=== PATIENT | male | born 1940 | race Caucasian/White ===

== ENCOUNTER 2017-09-06 15:15 | Inpatient (IN) ==
[2017-09-07] MEDS: Aspirin Enteric Coated 81 MG Tablet PO SCH (09:05)
[2017-09-07] MEDS: amLODIPine 5 MG TABLET PO SCH (09:06)
--- NOTE | 2017-09-07 16:39 | Internal Med History&Physical ---
Date of Encounter: 09/07/17 Time of Encounter: 16:00 Assessment and Plan (1) CVA (cerebral vascular accident) Current visit: No Status: Suspected Suspect left MCA distribution with right hemipareis. Continue aspirin and Plavix. Qualifiers: CVA mechanism: unspecified Qualified Code(s): I63.9 - Cerebral infarction, unspecified (2) BPH (benign prostatic hyperplasia) Current visit: Yes Status: Chronic Continue Cardura Qualifiers: Lower urinary tract symptom presence: unspecified whether lower urinary tract symptoms present Qualified Code(s): N40.0 - Benign prostatic hyperplasia without lower urinary tract symptoms (3) Loose stools Current visit: Yes Status: Acute Will discontinue Aricept and Singulair and monitor stools. (4) Hyperlipidemia Current visit: Yes Status: Acute Continue atorvastatin Qualifiers: Hyperlipidemia type: unspecified Qualified Code(s): E78.5 - Hyperlipidemia , unspecified (5) Hypertension Current visit: No Status: Chronic Continue Norvasc and Lopressor Qualifiers: Hypertension type: essential hypertension Qualified Code(s): I10 - Essential (primary) hypertension Internal Medicine - H&P: HPI Chief complaint: Stroke Admitted From: Hospital to Hospital Transfer Plans for Post Hospital Care: Home History of present illness: Mr. Lewis is a 76 year old male who was transferred to [facility] swing bed 09/06/2017 after a September 02 [facility] stay for CVA. He had originally presented at [facility] but was transferred to [facility] since no neurologist was on staff at [facility]. 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 The right carotid bifurcation showed stenosis less than 25%. There was no high-grade stenosis or focal occlusion of the vertebral arteries. He was treated medically and discharged to [facility] for ongoing rehabilitation therapy in swing bed. 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 He had essentially complete recovery from that event. He was maintained on aspirin and Plavix. He has diagnoses of dementia since 2012 and is on Aricept and Namenda. He denies seizures or other neurologic disorders. Past Med Surg Social Fam HX - Past Medical History Medical history: hyperlipidemia, hypertension, peripheral artery disease, syncope, TIA Additional medical history: Sick Sinus Syndrome Psychiatric history: anxiety, depression - Past Surgical History Surgical History: pacemaker/AICD Additional surgical history: carotid stenosis - Social History Smoking Status: Never smoker Smokeless Tobacco Status: No Alcohol use: rarely Drug use: none Internal Medicine - H&P: Meds Clopidogrel [Plavix] 75 mg PO DAILY 12/26/15 [History] Doxazosin Mesylate [Cardura] 2 mg PO DAILY 12/26/15 [History] Metoprolol [Lopressor] 25 mg PO DAILY 12/26/15 [History] Aspirin [Lo-Dose Aspirin EC] 81 mg PO DAILY 09/02/17 [History] Atorvastatin [Lipitor] 40 mg PO HS 09/02/17 [History] Citalopram Hydrobromide [Citalopram HBr] 40 mg PO DAILY 09/02/17 [History] Donepezil [Aricept] 10 mg PO HS 09/02/17 [History] Memantine [Namenda] 5 mg PO DAILY 09/02/17 [History] Montelukast [Singulair] 10 mg PO DAILY 09/02/17 [History] amLODIPine [Norvasc] 5 mg PO DAILY tablet 09/06/17 [Rx] 3 Allergy/AdvReac Type Severity Reaction Status Date / Time No Known Allergies Allergy Verified 09/02/17 20:34 All Systems PM: A 10-system review of systems was performed and is negative for pertinent findings except as documented above in the HPI. Review of systems: Gen.: His weight has been stable the past few months Cardiovascular: He has history of hypertension. 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 He denies heart failure DVT or pulmonary embolus. He had superficial phlebitis in the right leg remotely. Respiratory: He smoked from age [age]. He denies chronic lung disease GI: He has occasional diarrhea. He denies disorders of his liver gallbladder or exocrine pancreas : He has BPH denies other kidney or bladder disorders Neurologic: As per history of present illness Endocrine: He has hyperlipidemia but denies diabetes or thyroid disease Hematology/oncology: He has had skin cancer removal but denies internal malignancies or other blood disorders Psychiatric: He has depression and is on citalopram. He denies anxiety or other mental health issues [place] skeletal: He had left TKR in the past. He has DJD but denies gout or other bone joint or muscle disorders. - Constitutional Vitals: Temp Pulse Resp BP Pulse Ox 97.5 F L 68 17 144/69 92 09/07/17 06:29 09/07/17 06:29 09/07/17 06:29 09/07/17 06:29 09/07/17 06:29 Exam: Gen.: He is a well-developed well-nourished male lying in bed who appears in no acute distress HEENT: Head is atraumatic and normocephalic. Eyes: EOMI. There is no scleral icterus. Mouth: Mucosa is moist. Neck: There is no thyromegaly or adenopathy noted. Heart: Regular with frequent ectopic beats up to occasionally bigeminy. No murmurs or gallops are heard Lungs: No wheezes or crackles are heard. Abdomen: Soft and nontender. No masses or guarding are noted. Extremities: There is no cyanosis edema or clubbing noted. Dorsalis pedis and posttibial pulses are trace palpable bilaterally. Neurologic: Mental status: He is able to answer an occasional question but is generally not conversational. Cranial nerves: Smile is symmetric. Forehead wrinkles bilaterally. Tongue protrudes midline. EOMI. Motor: His right arm is near flaccid. The left arm moves normally. Ankle flexion and extension strength against resistance is 1-2 over 2 on the right and 2 over 2 on the left. Cerebellar: Finger to nose is intact using the left hand. The right arm does not move. Skin: Warm and dry
[2017-09-08] MEDS: Aspirin Enteric Coated 81 MG Tablet PO SCH (08:00)
[2017-09-08] MEDS: amLODIPine 5 MG TABLET PO SCH (08:00)
--- NOTE | 2017-09-08 14:46 | Internal Med Progress Note ---
Date of Encounter: 09/08/17 Time of Encounter: 14:40 - Assessment and plan (1) CVA (cerebral vascular accident) Current Visit: No Status: Suspected Assessment and plan: September 08. Right arm strength improved. Continue aspirin and Plavix. Qualifiers: CVA mechanism: unspecified Qualified Code(s): I63.9 - Cerebral infarction, unspecified (2) BPH (benign prostatic hyperplasia) Current Visit: Yes Status: Chronic Assessment and plan: September 08. Continue Cardura Qualifiers: Lower urinary tract symptom presence: unspecified whether lower urinary tract symptoms present Qualified Code(s): N40.0 - Benign prostatic hyperplasia without lower urinary tract symptoms (3) Loose stools Current Visit: Yes Status: Acute Assessment and plan: September 08. Remain off Aricept and Singulair and monitor. (4) Hyperlipidemia Current Visit: Yes Status: Acute Assessment and plan: September 08. Continue atorvastatin Qualifiers: Hyperlipidemia type: unspecified Qualified Code(s): E78.5 - Hyperlipidemia , unspecified (5) Hypertension Current Visit: No Status: Chronic Assessment and plan: September 08. Continue Norvasc and Lopressor. Qualifiers: Hypertension type: essential hypertension Qualified Code(s): I10 - Essential (primary) hypertension - Subjective Interval history: September 08. He has no new complaints and feels well. - Constitutional Vitals: Temp Pulse Resp BP Pulse Ox 98.2 F 70 18 160/82 97 09/08/17 07:00 09/08/17 07:00 09/08/17 07:00 09/08/17 07:00 09/08/17 07:00 Exam: He is resting comfortably in bed. His affect is cheerful. He is able to lift his right arm off the bed. I reviewed his medications and lab results. Consult Discharge Plan - Plan Referrals: Carl Antonio DO [Primary Care Provider] - 1 week
[2017-09-09] MEDS: Aspirin Enteric Coated 81 MG Tablet PO SCH (08:23)
[2017-09-09] MEDS: amLODIPine 5 MG TABLET PO SCH (08:24)
--- NOTE | 2017-09-09 15:30 | Internal Med Progress Note ---
Date of Encounter: 09/09/17 Time of Encounter: 15:20 - Assessment and plan (1) CVA (cerebral vascular accident) Current Visit: No Status: Suspected Assessment and plan: September 08. Right arm strength improved. Continue aspirin and Plavix. September 09. Continue therapy interventions with aspirin and Plavix. Qualifiers: CVA mechanism: unspecified Qualified Code(s): I63.9 - Cerebral infarction, unspecified (2) BPH (benign prostatic hyperplasia) Current Visit: Yes Status: Chronic Assessment and plan: September 08. Continue Cardura Qualifiers: Lower urinary tract symptom presence: unspecified whether lower urinary tract symptoms present Qualified Code(s): N40.0 - Benign prostatic hyperplasia without lower urinary tract symptoms (3) Loose stools Current Visit: Yes Status: Acute Assessment and plan: September 08. Remain off Aricept and Singulair and monitor. September 09. Improved. Remain off Aricept and Singulair. (4) Hyperlipidemia Current Visit: Yes Status: Acute Assessment and plan: September 08. Continue atorvastatin Qualifiers: Hyperlipidemia type: unspecified Qualified Code(s): E78.5 - Hyperlipidemia , unspecified (5) Hypertension Current Visit: No Status: Chronic Assessment and plan: September 08. Continue Norvasc and Lopressor. September 09. Continue Norvasc, Cardura, and Lopressor. Qualifiers: Hypertension type: essential hypertension Qualified Code(s): I10 - Essential (primary) hypertension (6) Depression Current Visit: Yes Status: Acute Assessment and plan: September 09. He admits feeling depressed and states he has difficulty falling asleep at night. Trazodone will be started. Qualifiers: Depression Type: unspecified Qualified Code(s): F32.9 - Major depressive disorder, single episode, unspecified - Subjective Interval history: September 08. He has no new complaints and feels well. September 09. He has no new complaints. - Constitutional Vitals: Temp Pulse Resp BP Pulse Ox 97.6 F 68 18 160/91 98 09/09/17 07:04 09/09/17 07:04 09/09/17 07:04 09/09/17 07:04 09/09/17 07:04 Exam: He is sitting in a chair at bedside and appears in no acute distress. He is unable to lift his right arm today against gravity. His affect is overall cheerful. I reviewed his medications and lab results. Consult Discharge Plan - Plan Referrals: Carl Antonio DO [Primary Care Provider] - 1 week
[2017-09-09] MEDS: traZODone 50 MG TABLET PO SCH (20:24)
[2017-09-10] MEDS: Aspirin Enteric Coated 81 MG Tablet PO SCH (09:22)
[2017-09-10] MEDS: amLODIPine 5 MG TABLET PO SCH (09:22)
[2017-09-10] MEDS: traZODone 50 MG TABLET PO SCH (20:48)
[2017-09-11] MEDS: Aspirin Enteric Coated 81 MG Tablet PO SCH (10:06)
[2017-09-11] MEDS: amLODIPine 5 MG TABLET PO SCH (10:07)
[2017-09-11] MEDS: traZODone 50 MG TABLET PO SCH (20:44)
[2017-09-12] MEDS: amLODIPine 5 MG TABLET PO SCH (08:33)
[2017-09-12] MEDS: Aspirin Enteric Coated 81 MG Tablet PO SCH (08:33)
--- NOTE | 2017-09-12 12:34 | Internal Med Progress Note ---
Date of Encounter: 09/12/17 Time of Encounter: 12:25 - Assessment and plan (1) CVA (cerebral vascular accident) Current Visit: No Status: Suspected Assessment and plan: September 08. Right arm strength improved. Continue aspirin and Plavix. September 09. Continue therapy interventions with aspirin and Plavix. Qualifiers: CVA mechanism: unspecified Qualified Code(s): I63.9 - Cerebral infarction, unspecified (2) BPH (benign prostatic hyperplasia) Current Visit: Yes Status: Chronic Assessment and plan: September 08. Continue Cardura Qualifiers: Lower urinary tract symptom presence: unspecified whether lower urinary tract symptoms present Qualified Code(s): N40.0 - Benign prostatic hyperplasia without lower urinary tract symptoms (3) Loose stools Current Visit: Yes Status: Acute Assessment and plan: September 08. Remain off Aricept and Singulair and monitor. September 09. Improved. Remain off Aricept and Singulair. September 12. He did not mention these today. C. difficile was negative. (4) Hyperlipidemia Current Visit: Yes Status: Acute Assessment and plan: September 08. Continue atorvastatin Qualifiers: Hyperlipidemia type: unspecified Qualified Code(s): E78.5 - Hyperlipidemia , unspecified (5) Hypertension Current Visit: No Status: Chronic Assessment and plan: September 08. Continue Norvasc and Lopressor. September 09. Continue Norvasc, Cardura, and Lopressor. Qualifiers: Hypertension type: essential hypertension Qualified Code(s): I10 - Essential (primary) hypertension (6) Depression Current Visit: Yes Status: Acute Assessment and plan: September 09. He admits feeling depressed and states he has difficulty falling asleep at night. Trazodone will be started. September 12. Sleep has improved. Continue trazodone. Qualifiers: Depression Type: unspecified Qualified Code(s): F32.9 - Major depressive disorder, single episode, unspecified - Subjective Interval history: September 08. He has no new complaints and feels well. September 09. He has no new complaints. September 12. He has no new complaints. He states he is unsure that he is making satisfactory progress. - Constitutional Vitals: Temp Pulse Resp BP Pulse Ox 98.4 F 94 12 130/83 96 09/12/17 07:45 09/12/17 07:45 09/12/17 07:45 09/12/17 07:45 07/19/18 07:45 Exam: He is resting comfortably in bed and appears in no acute distress. He is able to lift his right arm minimally against gravity. His affect seems slightly flat he is not very conversational. I reviewed his medications. Consult Discharge Plan - Plan Referrals: Carl Antonio DO [Primary Care Provider] - 1 week
[2017-09-12] MEDS: traZODone 50 MG TABLET PO SCH (20:34)
[2017-09-13] MEDS: Aspirin Enteric Coated 81 MG Tablet PO SCH (10:22)
[2017-09-13] MEDS: amLODIPine 5 MG TABLET PO SCH (10:22)
[2017-09-13] MEDS: traZODone 50 MG TABLET PO SCH (21:06)
[2017-09-14] MEDS: amLODIPine 5 MG TABLET PO SCH (08:00)
[2017-09-14] MEDS: Aspirin Enteric Coated 81 MG Tablet PO SCH (08:01)
[2017-09-14] MEDS: traZODone 50 MG TABLET PO SCH (21:04)
[2017-09-14] MEDS: Mag Hydrox/Al Hydrox/Simeth 30 ML UDC PO SCH (22:31)
[2017-09-15] MEDS ORDERED: Mag Hydrox/Al Hydrox/Simeth 30 ML UDC PO SCH
[2017-09-15] MEDS: Mag Hydrox/Al Hydrox/Simeth 30 ML UDC PO SCH (01:42)
[2017-09-15] MEDS ORDERED: Mag Hydrox/Al Hydrox/Simeth 30 ML UDC PO PRN (01:45)
[2017-09-15] MEDS: Aspirin Enteric Coated 81 MG Tablet PO SCH (09:01)
[2017-09-15] MEDS: amLODIPine 5 MG TABLET PO SCH (09:01)
--- NOTE | 2017-09-15 15:11 | Internal Med Progress Note ---
Date of Encounter: 09/15/17 Time of Encounter: 15:05 - Assessment and plan (1) CVA (cerebral vascular accident) Current Visit: No Status: Suspected Assessment and plan: September 08. Right arm strength improved. Continue aspirin and Plavix. September 09. Continue therapy interventions with aspirin and Plavix. Qualifiers: CVA mechanism: unspecified Qualified Code(s): I63.9 - Cerebral infarction, unspecified (2) BPH (benign prostatic hyperplasia) Current Visit: Yes Status: Chronic Assessment and plan: September 08. Continue Cardura Qualifiers: Lower urinary tract symptom presence: unspecified whether lower urinary tract symptoms present Qualified Code(s): N40.0 - Benign prostatic hyperplasia without lower urinary tract symptoms (3) Loose stools Current Visit: Yes Status: Acute Assessment and plan: September 08. Remain off Aricept and Singulair and monitor. September 09. Improved. Remain off Aricept and Singulair. September 12. He did not mention these today. C. difficile was negative. (4) Hyperlipidemia Current Visit: Yes Status: Acute Assessment and plan: September 08. Continue atorvastatin Qualifiers: Hyperlipidemia type: unspecified Qualified Code(s): E78.5 - Hyperlipidemia , unspecified (5) Hypertension Current Visit: No Status: Chronic Assessment and plan: September 08. Continue Norvasc and Lopressor. September 09. Continue Norvasc, Cardura, and Lopressor. Qualifiers: Hypertension type: essential hypertension Qualified Code(s): I10 - Essential (primary) hypertension (6) Depression Current Visit: Yes Status: Acute Assessment and plan: September 09. He admits feeling depressed and states he has difficulty falling asleep at night. Trazodone will be started. September 12. Sleep has improved. Continue trazodone. Qualifiers: Depression Type: unspecified Qualified Code(s): F32.9 - Major depressive disorder, single episode, unspecified - Subjective Interval history: September 08. He has no new complaints and feels well. September 09. He has no new complaints. September 12. He has no new complaints. He states he is unsure that he is making satisfactory progress. September 15. He has no new complaints and feels he is making progress. - Constitutional Vitals: Temp Pulse Resp BP Pulse Ox 98.6 F 69 16 153/84 96 09/15/17 06:41 09/15/17 06:41 07/22/18 06:41 09/15/17 06:41 09/15/17 06:41 Exam: He is resting comfortably in bed and appears in no acute distress. His affect is bright and cheerful. He is able to lift his right arm off the bed against gravity. Coordination is still significantly impaired. He answers questions with short answers. I reviewed his medications and lab results. Consult Discharge Plan - Plan Referrals: Carl Antonio DO [Primary Care Provider] - 1 week
[2017-09-15] MEDS: traZODone 50 MG TABLET PO SCH (21:45)
[2017-09-16] MEDS: Aspirin Enteric Coated 81 MG Tablet PO SCH (08:49)
[2017-09-16] MEDS: amLODIPine 5 MG TABLET PO SCH (08:50)
[2017-09-16] MEDS: traZODone 50 MG TABLET PO SCH (20:28)
[2017-09-17 06:32] LABS: Basophils # 0.1 K/mcL (0.0-0.2); Basophils % 0.7 %; Eosinophils # 0.2 K/mcL (0.0-0.6); Eosinophils % 2.4 %; Hematocrit 46.6 % (37.5-50.1); Hemoglobin 15.6 g/dL (12.9-16.9); Immature Granulocytes % 0.3 % (0-4); Lymphocytes # 1.8 K/mcL (0.6-4.6); Lymphocytes % 26.5 %; Mean Corpuscular HGB Conc 33.5 g/dL (31.6-35.5); Mean Corpuscular Hemoglobin 28.9 pg (28.0-33.3); Mean Corpuscular Volume 86.5 fL (83.0-100.0); Mean Platelet Volume 10.1 fL (9.4-12.4); Monocytes # 0.8 K/mcL (0.0-1.3); Monocytes % 11.1 %; Neutrophils # 4.1 K/mcL (1.6-8.9); Platelet Count 205 K/mcL (140-400); Red Blood Count 5.39 M/mcL (4.19-5.50); Red Cell Distribution Width 13.3 % (11.5-14.5)
[2017-09-17 06:51] LABS: BUN/Creatinine Ratio 14 (6-26); Blood Urea Nitrogen 14 mg/dL (8-23); Calcium 8.8 mg/dL (8.6-10.3); Carbon Dioxide 26 mEq/L (23-29); Chloride 105 mEq/L (98-107); Glucose 115 mg/dL (70-105); Osmolality,Calculated 285 (280-300); Potassium 4.2 mEq/L (3.5-5.1); Sodium 137 mEq/L (136-145); eGFR For African Americans > 60 (> 60); eGFR For Non-African Americans > 60 (> 60)
[2017-09-17] MEDS: amLODIPine 5 MG TABLET PO SCH (09:38)
[2017-09-17] MEDS: Aspirin Enteric Coated 81 MG Tablet PO SCH (09:38)
--- NOTE | 2017-09-17 12:41 | Internal Med Progress Note ---
Date of Encounter: 09/17/17 Time of Encounter: 12:32 - Assessment and plan (1) CVA (cerebral vascular accident) Current Visit: No Status: Suspected Assessment and plan: September 08. Right arm strength improved. Continue aspirin and Plavix. September 09. Continue therapy interventions with aspirin and Plavix. Qualifiers: CVA mechanism: unspecified Qualified Code(s): I63.9 - Cerebral infarction, unspecified (2) BPH (benign prostatic hyperplasia) Current Visit: Yes Status: Chronic Assessment and plan: September 08. Continue Cardura Qualifiers: Lower urinary tract symptom presence: unspecified whether lower urinary tract symptoms present Qualified Code(s): N40.0 - Benign prostatic hyperplasia without lower urinary tract symptoms (3) Loose stools Current Visit: Yes Status: Acute Assessment and plan: September 08. Remain off Aricept and Singulair and monitor. September 09. Improved. Remain off Aricept and Singulair. September 12. He did not mention these today. C. difficile was negative. September 17. Resolved (4) Hyperlipidemia Current Visit: Yes Status: Acute Assessment and plan: September 08. Continue atorvastatin Qualifiers: Hyperlipidemia type: unspecified Qualified Code(s): E78.5 - Hyperlipidemia , unspecified (5) Hypertension Current Visit: No Status: Chronic Assessment and plan: September 08. Continue Norvasc and Lopressor. September 09. Continue Norvasc, Cardura, and Lopressor. Qualifiers: Hypertension type: essential hypertension Qualified Code(s): I10 - Essential (primary) hypertension (6) Depression Current Visit: Yes Status: Acute Assessment and plan: September 09. He admits feeling depressed and states he has difficulty falling asleep at night. Trazodone will be started. September 12. Sleep has improved. Continue trazodone. Qualifiers: Depression Type: unspecified Qualified Code(s): F32.9 - Major depressive disorder, single episode, unspecified - Subjective Interval history: September 08. He has no new complaints and feels well. September 09. He has no new complaints. September 12. He has no new complaints. He states he is unsure that he is making satisfactory progress. September 15. He has no new complaints and feels he is making progress. September 17. He has no new complaints and feels well. He denies sleep issues or loose stools. - Constitutional Vitals: Temp Pulse Resp BP Pulse Ox 98.5 F 67 18 117/67 95 09/17/17 07:09 09/17/17 07:09 09/17/17 07:09 09/17/17 07:09 09/17/17 07:09 Exam: He sitting in a chair at bedside resting comfortably. His affect is overall cheerful. Speech is appropriate but brief answers. I reviewed his medications and lab results. Internal Medicine: Result - Labs CBC & Chem 7: 09/17/17 05:35 09/17/17 05:35 Labs: Short CBC 09/17/17 Range/Units 05:35 WBC 6.9 (4.3-11.1) K/mcL Hgb 15.6 (12.9-16.9) g/dL Hct 46.6 (37.5-50.1) % Plt Count 205 (140-400) K/mcL Neutrophils # 4.1 (1.6-8.9) K/mcL BMP 09/17/17 05:35 Sodium 137 Potassium 4.2 Chloride 105 Carbon Dioxide 26 BUN 14 Creatinine 0.98 Glucose 115 H Calcium 8.8 Consult Discharge Plan - Plan Referrals: aCrl Antonio DO [Primary Care Provider] - 1 week
[2017-09-17] MEDS: traZODone 50 MG TABLET PO SCH (21:36)
[2017-09-18] MEDS: amLODIPine 5 MG TABLET PO SCH (09:28)
[2017-09-18] MEDS: Aspirin Enteric Coated 81 MG Tablet PO SCH (09:29)
[2017-09-18] MEDS: traZODone 50 MG TABLET PO SCH (20:23)
[2017-09-19] MEDS: amLODIPine 5 MG TABLET PO SCH (08:14)
[2017-09-19] MEDS: Aspirin Enteric Coated 81 MG Tablet PO SCH (08:14)
[2017-09-19] MEDS: traZODone 50 MG TABLET PO SCH (20:26)
[2017-09-20] MEDS: amLODIPine 5 MG TABLET PO SCH (08:37)
[2017-09-20] MEDS: Aspirin Enteric Coated 81 MG Tablet PO SCH (08:38)
[2017-09-20] MEDS: Acetaminophen 325 MG TABLET PO PRN ×2 (14:57→21:46)
[2017-09-20] MEDS: traZODone 50 MG TABLET PO SCH (21:47)
[2017-09-21] MEDS: amLODIPine 5 MG TABLET PO SCH (09:29)
[2017-09-21] MEDS: Aspirin Enteric Coated 81 MG Tablet PO SCH (09:29)
[2017-09-21] MEDS: Acetaminophen 325 MG TABLET PO PRN (09:29)
[2017-09-21] MEDS: traZODone 50 MG TABLET PO SCH (20:08)
[2017-09-22] MEDS: amLODIPine 5 MG TABLET PO SCH (08:19)
[2017-09-22] MEDS: Aspirin Enteric Coated 81 MG Tablet PO SCH (08:20)
--- NOTE | 2017-09-22 12:22 | Internal Med Progress Note ---
Date of Encounter: 09/22/17 Time of Encounter: 12:15 - Assessment and plan (1) CVA (cerebral vascular accident) Current Visit: Yes Status: Acute Assessment and plan: Right-sided weakness seems improved into aspirin Plavix and rehabilitation Qualifiers: CVA mechanism: unspecified Qualified Code(s): I63.9 - Cerebral infarction, unspecified (2) Dementia Current Visit: Yes Status: Chronic Assessment and plan: Stable off the Aricept because of loose stools still on Namenda, may impact his daily for rehabilitation Qualifiers: Dementia type: Alzheimer's disease Alzheimer's disease onset: late-onset Dementia behavioral disturbance: without behavioral disturbance Qualified Code (s): G30.1 - Alzheimer's disease with late onset; F02.80 - Dementia in other diseases classified elsewhere without behavioral disturbance (3) Poor posture Current Visit: Yes Status: Acute Assessment and plan: His head hangs down and his shoulders are not back PT to work with him potentially a soft brace in the neck I do not does not muscles and also his upper back muscles if he is cooperative (4) Hypertension Current Visit: Yes Status: Chronic Assessment and plan: Stable continue Norvasc and Lopressor and Cardura Qualifiers: Hypertension type: essential hypertension Qualified Code(s): I10 - Essential (primary) hypertension (5) Depression Current Visit: Yes Status: Acute Assessment and plan: Stable continue the trazodone Qualifiers: Depression Type: unspecified Qualified Code(s): F32.9 - Major depressive disorder, single episode, unspecified (6) BPH (benign prostatic hyperplasia) Current Visit: Yes Status: Chronic Assessment and plan: Stable continue Cardura Qualifiers: Lower urinary tract symptom presence: unspecified whether lower urinary tract symptoms present Qualified Code(s): N40.0 - Benign prostatic hyperplasia without lower urinary tract symptoms (7) Hyperlipidemia Current Visit: Yes Status: Chronic Assessment and plan: Stable continue atorvastatin Qualifiers: Hyperlipidemia type: unspecified Qualified Code(s): E78.5 - Hyperlipidemia , unspecified - Time Spent With Patient 25 - 35 minutes - Subjective Interval history: 76-year-old male has a CVA with right hemiplegia and aphasia on 09/02/17 that she thinks stroke actually happened on 08/31/18 stress that he fell on 09/02/17. The nurse noticed a reports that he is making progress. He does have a habits history of dementia. He likes to keep his head forward which would be hard on his neck. He sometimes complains of neck discomfort. He denies any chest pain or shortness of breath today. Concerns addressed questions answered - Constitutional Vitals: Temp Pulse Resp BP Pulse Ox 98.5 F 81 14 114/63 95 09/22/17 07:17 09/22/17 07:17 09/22/17 07:17 09/22/17 07:17 09/22/17 07:17 Exam: General: Alert and oriented, no acute distress Lungs: Clear to auscultation bilaterally without wheezing or crackles Heart: Regular rate and rythms without murmer or rubs Abdomen: Soft, nontender, Extremities: Right side significantly weaker than left for 4/5 Internal Medicine: Result - Labs CBC & Chem 7: 09/17/17 05:35 09/17/17 05:35 Consult Discharge Plan - Plan Referrals: Carl Antonio DO [Primary Care Provider] - 1 week
[2017-09-22] MEDS: traZODone 50 MG TABLET PO SCH (21:37)
[2017-09-23] MEDS: Aspirin Enteric Coated 81 MG Tablet PO SCH (08:27)
[2017-09-23] MEDS: amLODIPine 5 MG TABLET PO SCH (08:29)
[2017-09-23] MEDS ORDERED: Mag Hydrox/Al Hydrox/Simeth 30 ML UDC PO PRN (14:34)
--- NOTE | 2017-09-23 16:28 | Internal Med Progress Note ---
Date of Encounter: 09/23/17 Time of Encounter: 15:50 - Assessment and plan (1) CVA (cerebral vascular accident) Current Visit: Yes Status: Acute Assessment and plan: September 08. Right arm strength improved. Continue aspirin and Plavix. September 09. Continue therapy interventions with aspirin and Plavix. September 23. Continue present interventions. Anticipate discharge home Sep.27 Qualifiers: CVA mechanism: unspecified Qualified Code(s): I63.9 - Cerebral infarction, unspecified (2) BPH (benign prostatic hyperplasia) Current Visit: Yes Status: Chronic Assessment and plan: September 08. Continue Cardura Qualifiers: Lower urinary tract symptom presence: unspecified whether lower urinary tract symptoms present Qualified Code(s): N40.0 - Benign prostatic hyperplasia without lower urinary tract symptoms (3) Loose stools Current Visit: Yes Status: Acute Assessment and plan: September 08. Remain off Aricept and Singulair and monitor. September 09. Improved. Remain off Aricept and Singulair. September 12. He did not mention these today. C. difficile was negative. September 17. Resolved (4) Hyperlipidemia Current Visit: Yes Status: Chronic Assessment and plan: September 08. Continue atorvastatin Qualifiers: Hyperlipidemia type: unspecified Qualified Code(s): E78.5 - Hyperlipidemia , unspecified (5) Hypertension Current Visit: Yes Status: Chronic Assessment and plan: September 08. Continue Norvasc and Lopressor. September 09. Continue Norvasc, Cardura, and Lopressor. Qualifiers: Hypertension type: essential hypertension Qualified Code(s): I10 - Essential (primary) hypertension (6) Depression Current Visit: Yes Status: Acute Assessment and plan: September 09. He admits feeling depressed and states he has difficulty falling asleep at night. Trazodone will be started. September 12. Sleep has improved. Continue trazodone. Qualifiers: Depression Type: unspecified Qualified Code(s): F32.9 - Major depressive disorder, single episode, unspecified - Subjective Interval history: September 08. He has no new complaints and feels well. September 09. He has no new complaints. September 12. He has no new complaints. He states he is unsure that he is making satisfactory progress. September 15. He has no new complaints and feels he is making progress. September 17. He has no new complaints and feels well. He denies sleep issues or loose stools. September 23. Has no new complaints. - Constitutional Vitals: Temp Pulse Resp BP Pulse Ox 98.8 F 74 17 123/71 94 09/23/17 08:51 09/23/17 08:51 09/23/17 08:51 09/23/17 08:51 09/23/17 08:51 Exam: He is resting comfortably in bed and appears in no acute distress. His right arm shows very slight improvement in movement. His affect is cheerful. I reviewed his medications and lab results. Internal Medicine: Result - Labs CBC & Chem 7: 09/17/17 05:35 09/17/17 05:35 Consult Discharge Plan - Plan Referrals: Carl Antonio DO [Primary Care Provider] - 1 week
[2017-09-23] MEDS: traZODone 50 MG TABLET PO SCH (20:32)
[2017-09-24] MEDS: Aspirin Enteric Coated 81 MG Tablet PO SCH (09:31)
[2017-09-24] MEDS: amLODIPine 5 MG TABLET PO SCH (09:32)
[2017-09-24] MEDS: traZODone 50 MG TABLET PO SCH (20:12)
[2017-09-25] MEDS: amLODIPine 5 MG TABLET PO SCH (09:51)
[2017-09-25] MEDS: Aspirin Enteric Coated 81 MG Tablet PO SCH (09:51)
[2017-09-25] MEDS: traZODone 50 MG TABLET PO SCH (21:34)
[2017-09-26] MEDS: amLODIPine 5 MG TABLET PO SCH (08:12)
[2017-09-26] MEDS: Aspirin Enteric Coated 81 MG Tablet PO SCH (08:12)
--- NOTE | 2017-09-26 10:48 | Internal Med Progress Note ---
Date of Encounter: 09/26/17 Time of Encounter: 10:40 - Assessment and plan (1) CVA (cerebral vascular accident) Current Visit: Yes Status: Acute Assessment and plan: September 08. Right arm strength improved. Continue aspirin and Plavix. September 09. Continue therapy interventions with aspirin and Plavix. September 23. Continue present interventions. Anticipate discharge home Sep.27 Qualifiers: CVA mechanism: unspecified Qualified Code(s): I63.9 - Cerebral infarction, unspecified (2) BPH (benign prostatic hyperplasia) Current Visit: Yes Status: Chronic Assessment and plan: September 08. Continue Cardura Qualifiers: Lower urinary tract symptom presence: unspecified whether lower urinary tract symptoms present Qualified Code(s): N40.0 - Benign prostatic hyperplasia without lower urinary tract symptoms (3) Loose stools Current Visit: Yes Status: Acute Assessment and plan: September 08. Remain off Aricept and Singulair and monitor. September 09. Improved. Remain off Aricept and Singulair. September 12. He did not mention these today. C. difficile was negative. September 17. Resolved (4) Hyperlipidemia Current Visit: Yes Status: Chronic Assessment and plan: September 08. Continue atorvastatin Qualifiers: Hyperlipidemia type: unspecified Qualified Code(s): E78.5 - Hyperlipidemia , unspecified (5) Hypertension Current Visit: Yes Status: Chronic Assessment and plan: September 08. Continue Norvasc and Lopressor. September 09. Continue Norvasc, Cardura, and Lopressor. Qualifiers: Hypertension type: essential hypertension Qualified Code(s): I10 - Essential (primary) hypertension (6) Depression Current Visit: Yes Status: Acute Assessment and plan: September 09. He admits feeling depressed and states he has difficulty falling asleep at night. Trazodone will be started. September 12. Sleep has improved. Continue trazodone. Qualifiers: Depression Type: unspecified Qualified Code(s): F32.9 - Major depressive disorder, single episode, unspecified - Subjective Interval history: September 08. He has no new complaints and feels well. September 09. He has no new complaints. September 12. He has no new complaints. He states he is unsure that he is making satisfactory progress. September 15. He has no new complaints and feels he is making progress. September 17. He has no new complaints and feels well. He denies sleep issues or loose stools. September 23. Has no new complaints. September 26. He has no new complaints. He denies diarrhea or pain. - Constitutional Vitals: Temp Pulse Resp BP Pulse Ox 97.8 F 65 16 124/73 95 09/26/17 06:39 09/26/17 06:39 09/26/17 06:39 09/26/17 06:39 09/26/17 06:39 Exam: He is sitting in a chair at bedside resting comfortably. His affect is bright and cheerful. I reviewed his medications and lab results. Internal Medicine: Result - Labs CBC & Chem 7: 09/17/17 05:35 09/17/17 05:35 Consult Discharge Plan - Plan Referrals: Carl Antonio DO [Primary Care Provider] - 1 week
[2017-09-26] MEDS: traZODone 50 MG TABLET PO SCH (21:07)
[2017-09-27 06:55] VITALS: BP 111/64
--- NOTE | 2017-09-27 09:38 | Discharge Summary ---
Date of Encounter: 09/27/17 Time of Encounter: 09:30 - Discharge Diagnosis (1) CVA (cerebral vascular accident) Priority: Primary Status: Acute Qualifiers: CVA mechanism: unspecified Qualified Code(s): I63.9 - Cerebral infarction, unspecified (2) BPH (benign prostatic hyperplasia) Priority: Secondary Status: Chronic Qualifiers: Lower urinary tract symptom presence: unspecified whether lower urinary tract symptoms present Qualified Code(s): N40.0 - Benign prostatic hyperplasia without lower urinary tract symptoms (3) Loose stools Priority: Secondary Status: Resolved (4) Hyperlipidemia Priority: Secondary Status: Chronic Qualifiers: Hyperlipidemia type: unspecified Qualified Code(s): E78.5 - Hyperlipidemia , unspecified (5) Hypertension Priority: Secondary Status: Chronic Qualifiers: Hypertension type: essential hypertension Qualified Code(s): I10 - Essential (primary) hypertension (6) Depression Priority: Secondary Status: Chronic Qualifiers: Depression Type: unspecified Qualified Code(s): F32.9 - Major depressive disorder, single episode, unspecified Hospital course: Mr. Lewis is a 76 year old male who was transferred to [facility] swing bed 09/06/2017 after a September 02 [facility] stay for CVA. He had originally presented at [facility] but was transferred to [facility] since no neurologist was on staff at [facility]. 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 The right carotid bifurcation showed stenosis less than 25%. There was no high-grade stenosis or focal occlusion of the vertebral arteries. He was treated medically and discharged to [facility] for ongoing rehabilitation therapy in swing bed. Initial orders were written by the discharging physician at [facility]. I saw him September 07 and performed a swing bed history and physical. He continued on aspirin and Plavix. Physical therapy and occupational therapy evaluations with ongoing interventions were done. He was also seen by speech therapy for cognitive evaluation and treatment. He made satisfactory progress. On September 27 arrangements were complete for him to be discharged home. He will follow with his PCP within 1 week and with neurologist as directed. Aricept and Singulair were held and diarrhea resolved. He will remain off these at discharge. - Time Spent with Patient Total time spent providing and/or coordinating discharge services: - Discharge Medications Prescriptions: Trazodone HCl 100 mg PO HS #30 tablet Home Medications: Clopidogrel [Plavix] 75 mg PO DAILY 12/26/15 [History] Doxazosin Mesylate [Cardura] 2 mg PO DAILY 12/26/15 [History] Metoprolol [Lopressor] 25 mg PO DAILY 12/26/15 [History] Aspirin [Lo-Dose Aspirin EC] 81 mg PO DAILY 09/02/17 [History] Atorvastatin [Lipitor] 40 mg PO HS 09/02/17 [History] Citalopram Hydrobromide [Citalopram HBr] 40 mg PO DAILY 09/02/17 [History] Memantine [Namenda] 5 mg PO DAILY 09/02/17 [History] amLODIPine [Norvasc] 5 mg PO DAILY tablet 09/06/17 [Rx] Trazodone HCl 100 mg PO HS #30 tablet 09/27/17 [Rx] Allergies/Adverse Reactions: 3 Allergy/AdvReac Type Severity Reaction Status Date / Time No Known Allergies Allergy Verified 09/02/17 20:34 Date of admission: 09/06/17 15:41 Primary care physician: Carl Antonio Consults: 09/06/17 16:04 Consult to Pastoral Services [CONS] Routine Comment: Consult to Vegetable Cutter [CONS] Routine Reason for SW Consult: 09/06/17 17:25 Consult to Physical Therapy [CONS] Routine Comment: Evaluate, develop and implement POC Reason for Consult: Weakness Does patient have active BEDREST order?: No Is patient medically & hemodynamically stable?: Yes OT [Consult to Occupational Therapy] [CONS] Routine Comment: Evaluate, develop and implement POC Reason for Consult: weakness Does patient have active BEDREST order?: No Is patient medically & hemodynamically stable?: Yes 09/10/17 15:41 Consult to Speech Therapy [CONS] Routine Comment: Evaluate, develop and implement POC Reason for Consult: cognitive Call Completed: Yes - Constitutional Vitals: Temp Pulse Resp BP Pulse Ox 98.2 F 65 14 111/64 93 09/27/17 06:30 09/27/17 06:30 09/27/17 06:30 09/27/17 06:30 09/27/17 06:30 - Patient Status Disposition: Home Health Service Functional capacity at discharge: uses cane/walker - Discharge Instructions Follow Up With: Carl Antonio DO [Primary Care Provider] - 1 week - Diet and Activity Activity: as per physical therapy Diet: advance to your usual diet
--- NOTE | 2017-09-27 09:44 | Physician Discharge Referral ---
Home Health/Hosp Referral Info Transfer to: Home Health Attending Provider: Contreras Provider in Charge Post Discharge: PCP Ange) - Diagnosis (1) CVA (cerebral vascular accident) Priority: Primary Status: Acute (2) BPH (benign prostatic hyperplasia) Priority: Secondary Status: Chronic (3) Loose stools Priority: Secondary Status: Resolved (4) Hyperlipidemia Priority: Secondary Status: Chronic (5) Hypertension Priority: Secondary Status: Chronic (6) Depression Priority: Secondary Status: Chronic - Respiratory Orders Smoking Cessation: Smoking cessation has been advised. For more information, call the [place] Tobacco Quit Line at 1-722-TYNY-NOW. - Diet/Nutrition Diet/Nutrition Orders: Cardiac - Activity Activity Orders: Walker - Services Needed Following services are medically necessary services: Nursing, Home Health Aide, Physical Therapy, Occupational Therapy - Transfer Medications Prescriptions: Trazodone HCl 100 mg PO HS #30 tablet Home Medications: Clopidogrel [Plavix] 75 mg PO DAILY 12/26/15 [History] Doxazosin Mesylate [Cardura] 2 mg PO DAILY 12/26/15 [History] Metoprolol [Lopressor] 25 mg PO DAILY 12/26/15 [History] Aspirin [Lo-Dose Aspirin EC] 81 mg PO DAILY 09/02/17 [History] Atorvastatin [Lipitor] 40 mg PO HS 09/02/17 [History] Citalopram Hydrobromide [Citalopram HBr] 40 mg PO DAILY 09/02/17 [History] Memantine [Namenda] 5 mg PO DAILY 09/02/17 [History] amLODIPine [Norvasc] 5 mg PO DAILY tablet 09/06/17 [Rx] Trazodone HCl 100 mg PO HS #30 tablet 09/27/17 [Rx] Allergies/Adverse Reactions: 3 Allergy/AdvReac Type Severity Reaction Status Date / Time No Known Allergies Allergy Verified 09/02/17 20:34 Certification: Further, I certify that my clinical findings support that this patient is homebound (i.e. absences from home require considerable and taxing effort and are for medical reasons or holiness services or infrequently or short duration when for other reasons) because: Homebound Reason: Leaving home requires considerable and taxing effort due to condition (Impaired walking ability secondary to CVA) Attestation: My signature below is to certify that this patient is under my care and that I, or nurse practitioner, or a physician's assistant corporate secretary working with me, has a face-to -face encounter with this patient.
[2017-09-27] MEDS: amLODIPine 5 MG TABLET PO SCH (10:03)
[2017-09-27] MEDS: Aspirin Enteric Coated 81 MG Tablet PO SCH (10:03)
== END 2017-09-27 10:30 | disposition home health service (06) | DRG 57 ==
LOC: INPPIK 15:41
PROVIDERS: ADMIT Internal Medicine; ATTEND Internal Medicine